=== PATIENT | female | born 1970 | race Caucasian/White ===

== ENCOUNTER → 2017-04-20 | Outpatient (CLI) | payer BC ==
--- NOTE | 2017-04-23 12:58 | SLEEPHOME ---
DATE OF STUDY: 04/20/2017 ORDERED BY: Alyssa Salinas Diagnostic home sleep testing was performed due to concern for the obstructive sleep apnea syndrome in this patient with a history of snoring. 10 hours and 59 minutes of data were reviewed. There were 7 hours and 52 minutes marked as time in bed. During the interval marked time in bed, there were 29 respiratory events identified of 10 seconds in duration or greater for an apnea-hypopnea index of 3.7. The events were primarily obstructive. Baseline pulse rate 63. Pulse rate ranged 42 to 96. Baseline saturation 95%. Lowest oxygen saturation 92%. Testing was performed in both the supine and nonsupine positions. IMPRESSION: Borderline home sleep testing with repetitive respiratory events, but a respiratory event index of only 3.7. RECOMMENDATION: If the patient's sleep symptoms are significant, referral for in-laboratory nocturnal polysomnography has been shown more sensitive at identifying mild obstructive sleep apnea disease.
== END ==
LOC: M SLEEP HO 13:29
PROVIDERS: ATTEND Nurse Practitioner Adult Health
DX: G47.30 Sleep apnea, unspecified (principal)